=== PATIENT | male | born 1950 | race Caucasian/White ===

== ENCOUNTER 2017-07-29 05:44 | Inpatient (IN) | payer OTHER ==
[2017-07-20 11:17] LABS: % IMMATURE GRANULYOCYTES 0.2 % (0.0-1.1); ABSOLUTE IMMATURE GRANULOCYTES 0.01 10^3/uL (0.00-0.10); ADD DIFF? NO; ADD MORPH? NO; ADD SCAN? NO; ATYPICAL LYMPHOCYTE FLAG 10 (0-99); FRAGMENT RBC FLAG 0 (0-99); HEMATOCRIT 53.5 % (40.0-51.0); HEMOGLOBIN 18.6 g/dL (13.7-17.5); LEFT SHIFT FLG 0 (0-99); LIPEMIA HEMOLYSIS FLAG 90 (0-99); MEAN CELL HEMOGLOBIN 31.4 pg (27.9-34.1); MEAN CELL HEMOGLOBIN CONCENTR. 34.8 g/dL (32.4-36.7); MEAN CELL VOLUME 90.2 fL (81.5-99.8); MEAN PLATELET VOLUME 10.3 fL (8.7-11.7); PLATELET CLUMPS FLAG 10 (0-99); PLATELET COUNT 128 10^3/uL (150-400); RED BLOOD CELL COUNT 5.93 10^6/uL (4.40-6.38)
[2017-07-29] MEDS ORDERED: fentaNYL 100 MCG/2 ML INJ IT ONE (05:51)
[2017-07-29] MEDS ORDERED: ceFAZolin 2 GM/DEXTROSE 100 ML IV ONE (05:51)
[2017-07-29] MEDS ORDERED: LIDOCAINE 1% 2 ML INJ ID PRN (05:53)
[2017-07-29] MEDS ORDERED: LR 1,000 ML IV ONE (05:53)
[2017-07-29] MEDS ORDERED: TRANEXAMIC ACID 1,000 MG in NS 100 ML IV ONE (06:00)
--- NOTE | 2017-07-29 06:15 | PDHPUP ---
History & Physical Update H&P update statement: This history and physical update is based on an assessment of the patient which was completed after admission or registration (within 24 hours), but prior to the surgery/procedure. H&P update: H&P reviewed & patient examined, no change in patient's condition since H&P completed
[2017-07-29] MEDS ORDERED: CHLORHEXIDINE GLUC HIBICLENS 118 ML BTL TP ONE (06:33)
[2017-07-29] MEDS ORDERED: BUPIVACAINE 0.25% 30 ML SDV ONE ×2 (06:34→18:01)
[2017-07-29] MEDS ORDERED: THROMBIN (BOVINE) 5,000 UNIT VIAL TP ONE ×4 (06:34→10:40)
[2017-07-29] MEDS ORDERED: CITRATE DEXTROSE SOLN 500 ML BAG ONE ×2 (06:34→11:50)
[2017-07-29] MEDS ORDERED: BACITRACIN 50,000 UNITS/10 ML SYR IRR ONE ×6 (06:35→16:49)
--- NOTE | 2017-07-29 07:09 | PDANEPAE ---
ANE History of Present Illness TLIF ANE Past Medical History - Cardiovascular History Hx Hypertension: No Hx Arrhythmias: No Hx Chest Pain: No Hx Coronary Artery / Peripheral Vascular Disease: No Hx CHF / Valvular Disease: No Hx Palpitations: No - Pulmonary History Hx COPD: No Hx Asthma/Reactive Airway Disease: No Hx Recent Upper Respiratory Infection: No Hx Oxygen in Use at Home: No Hx Sleep Apnea: No Sleep Apnea Screening Result - Last Documented: Negative - Neurologic History Hx Cerebrovascular Accident: No Hx Seizures: No Hx Dementia: No - Endocrine History Hx Diabetes: No - Renal History Hx Renal Disorders: No - Liver History Hx Hepatic Disorders: No - Neurological & Psychiatric Hx Hx Neurological and Psychiatric Disorders: Yes Neurological / Psychiatric History Comment: low back pain radiates down L leg to toes.Numbness since 1999 -Left half of L leg. - Cancer History Hx Cancer: No - Congenital Disorder History Hx Congenital Disorders: No - GI History GERD: no Hx Gastrointestinal Disorders: No Gastrointestinal History Comment: HX STOMACH ULCER 2010 - Other Health History Other Health History: INJURY TO BACK 1999 - Chronic Pain History Chronic Pain: Yes (LOWER BACK AND LT FOOT NEUROPATHY) - Surgical History Prior Surgeries: PLACEMENT SPINAL CORD STIM 02/2016 (Stage 1 and 2). T9-T12 TLIF 11/05/15. T11/12 DECOMPRESSION FUSION 2012. L ANKLE FX 2008. SPINOUS PROCESS X STOPS L3/4 02/17 2007. L 5/S1 LAMINECTOMY 2001. ANT/POST FUSION L1-3 1999 ANE Review of Systems Review of Systems: - Exercise capacity METS (RN): 4 METS ANE Patient History - Allergies Allergies/Adverse Reactions: peanut Allergy (Severe, Verified 07/15/17 15:13) Anaphylaxis tree nut [Nuts] Allergy (Severe, Verified 07/15/17 15:13) Anaphylaxis No Allergies [NKDA] Allergy (Verified 07/15/17 15:13) - Home Medications Home Medications: Diazepam [Valium 10 MG (*)] 5 - 10 mg PO HS PRN 11/05/15 [Last Taken 07/28/17 22 :30] Pregabalin [Lyrica 75mg (*)] 75 mg PO TID 11/05/15 [Last Taken 07/29/17 05:30] Gabapentin [Neurontin 400 MG (*)] 800 mg PO TID 07/13/17 [Last Taken 07/29/17 05 :00] Hydrocodone/Acetaminophen [[place] 5/325 (*)] 1 tab PO DAILY PRN 07/13/17 [Last Taken 07/15/17] traZODone [traZODONE 50MG (*)] 50 mg PO HS PRN 07/13/17 [Last Taken 07/28/17 22: 30] - NPO status NPO Since - Liquids (Date): 07/28/17 NPO Since - Liquids (Time): 22:00 NPO Since - Solids (Date): 07/28/17 NPO Since - Solids (Time): 19:00 - Anes Hx Anes Hx: no prior problems - Smoking Hx Smoking Status: Never smoked - Alcohol Use Alcohol Use: Occasionally - Family Anes Hx Family Anes Hx: none Family Hx Anesthesia Complications: NONE ANE Labs/Vital Signs - Labs Result Diagrams: 07/20/17 11:04 - Vital Signs Blood Pressure: 131/83 Heart Rate: 68 Respiratory Rate: 20 O2 Sat (%): 91 Height: 175.26 cm Weight: 77.111 kg ANE Physical Exam - Airway Neck exam: FROM Mouth exam: normal dental/mouth exam - Pulmonary Pulmonary: clear to auscultation - Cardiovascular Cardiovascular: regular rate and rhythym - ASA Status ASA Status: III ANE Anesthesia Plan Anesthesia Plan: general endotracheal anesthesia Lines/Monitors: arterial line
[2017-07-29] MEDS ORDERED: MIDAZOLAM 2 MG/2 ML VIAL IVP ONE (07:11)
[2017-07-29] MEDS ORDERED: MIDAZOLAM 2 MG/2 ML VIAL ONE (07:13)
[2017-07-29] MEDS ORDERED: KETAMINE 100 MG/10 ML SYR ONE (07:17)
[2017-07-29] MEDS ORDERED: fentaNYL 100 MCG/2 ML INJ ONE ×8 (07:17→17:24)
[2017-07-29] MEDS ORDERED: PROPOFOL/EMULSION 500 MG/50 ML BOTTLE IV ONE ×4 (07:18→16:22)
[2017-07-29] MEDS ORDERED: ROCURONIUM 50 MG/5 ML VIAL ONE (07:20)
[2017-07-29] MEDS ORDERED: PHENYLEPHRINE 10 MG/ML SDV ONE (08:27)
[2017-07-29] MEDS ORDERED: epHEDrine SULFATE 10 MG/ML SYR ONE (08:31)
[2017-07-29] MEDS ORDERED: GLYCOPYRROLATE 0.2 MG/1 ML VIAL ONE (08:58)
[2017-07-29] MEDS: morphINE PF 5 MG/10 ML INJ IT ONE ×2 (11:11→17:34)
[2017-07-29] MEDS ORDERED: ceFAZolin 1 GM VIAL ONE ×2 (13:36→17:01)
[2017-07-29] MEDS ORDERED: HYDROGEN PEROXIDE 236 ML BOTTLE TP ONE (14:14)
[2017-07-29 15:24] LABS: BASE EXCESS -5.4 mEq/L (-2.5-2.5); BICARBONATE 19 mEq/L (22-26); IONIZED CALCIUM 1.08 MMOL/L (1.12-1.30); MEASURED OXYGEN SATURATION 99 % (92-95); PCO2 35 mmHg (34-38); PO2 129 mmHg (65-75); SODIUM ABG 135 mEq/L (137-146); TCO2 20 mEq/L (23-27)
[2017-07-29] MEDS ORDERED: ONDANSETRON 4 MG/2 ML VIAL ONE (17:52)
[2017-07-29] MEDS ORDERED: traZODone 50 MG TAB PO PRN (18:31)
[2017-07-29] MEDS ORDERED: DIAZEPAM 10 MG TAB PO PRN (18:31)
[2017-07-29] MEDS ORDERED: NALOXONE HCL 0.4 MG/ML INJ IVP PRN ×2 (18:32→18:36)
[2017-07-29] MEDS ORDERED: POLYETHYLENE GLYCOL 3350 17 GM PKT PO PRN (18:32)
[2017-07-29] MEDS ORDERED: diphenhydrAMINE 25 MG CAP PO PRN (18:32)
[2017-07-29] MEDS ORDERED: LACTULOSE 20 GM/30 ML UDCUP PO PRN ×2 (18:32→18:36)
[2017-07-29] MEDS ORDERED: BISACODYL 10 MG SUPP PR PRN ×2 (18:32→18:36)
[2017-07-29] MEDS ORDERED: MAGNESIUM HYDROXIDE 30 ML UDCUP PO PRN ×2 (18:32→18:36)
[2017-07-29] MEDS ORDERED: ONDANSETRON 4 MG/2 ML VIAL IVP PRN (18:32)
[2017-07-29] MEDS ORDERED: HYDROmorphONE/DILAUDID 6 MG/30 ML PCA IV PRN (18:36)
--- NOTE | 2017-07-29 18:49 | SOAPPROG ---
SOAP Progress Note Assessment/Plan: Assessment: 66 yo M sp T6-S1 fusion Plan: stable HOB flat until 08/01/17 with bedrest lovenox starts in am do NOT put MOHIT to suction please call with neuro changes 07/29/17 18:48 Subjective: + back pain, no leg pain Objective: Vital Signs Temp Pulse Resp BP Pulse Ox 36.4 C 68 20 131/83 H 91 L 07/29/17 06:25 07/29/17 07:11 07/29/17 07:11 07/29/17 07:11 07/29/17 07:11 Laboratory Results 07/20/17 11:04 somnolent PERRL, no facial droop, vision ok CRISELDA x 4 + light touch ICD10 Worksheet Patient Problems: Problems Problem Status Onset Fusion of spine of thoracic region Acute
--- NOTE | 2017-07-29 18:52 | GOP ---
[f rep st] OPERATIVE REPORT DATE OF OPERATION: 07/29/2017 SURGEON: Ricardo Fernando MD NEUROSURGEON: Ricardo Fernando MD STRAP STITCHER: OSVALDO Aragon ANESTHESIA: General endotracheal. PREOPERATIVE DIAGNOSIS: Severe L5-S1 spinal stenosis, and left greater than right lateral recess and foraminal impingement. L4-5 spinal stenosis. Severe iatrogenic deformity secondary to prior anterio r-posterior fusion into a kyphotic alignment. Intractable back pain. Failed conservative care. POSTOPERATIVE DIAGNOSIS: Severe L5-S1 spinal stenosis, and left greater than right lateral recess an d foraminal impingement. L4-5 spinal stenosis. Severe iatrogenic deformity secondary to prior anteri or-posterior fusion into a kyphotic alignment. Intractable back pain. Failed conservative care. PROCEDURE PERFORMED: Removal of extensive posterior segmental (pedicle screw and X-Stop devices) fix ation and exploration of spinal fusion from T9 through L3. Re-instrumentation from T6 through the sa milvia. Multilevel decompression, and redo decompression/re-exploration with L4 pedicle subtraction os teotomy, and L3-4, L4-5 and L5-S1 posterior lateral fusion with local autograft, bone morphogenic pro tein and structural PEEK interbody spacers. T6 through sacral posterolateral fusion. Injection of i ntrathecal narcotics. Use of computer volumetric stereotactic navigation with intraoperative neuroph ysiologic testing. Identification and repair of cerebrospinal fluid leak, requiring extension of dawkins inectomy defect. FINDINGS: ESTIMATED BLOOD LOSS: 1800 cc. INDICATIONS: The patient is a 66-year-old man with an extensive past medical and surgical history, a nd he was fused into a kyphotic position many years ago via an anterior/posterior instrumentation and fusion. He also has multilevel severe spinal stenosis and lateral recess impingement. As a result, he has intractable low back pain and left greater than right lower extremity radicular and neurogeni c claudication symptoms. He has failed extensive conservative care, and presents now for surgical in tervention. DESCRIPTION OF PROCEDURE: After informed consent was obtained, the patient was taken to the operatin g room and placed in a prone position on the Wilfrid table. The thoracolumbosacral areas were preppe d and draped in a sterile fashion. After fluoroscopic localization of correct levels, the subcutaneo us and intramuscular tissues were infiltrated with local anesthesia. A midline linear incision was t hen created from approximately T9 through S1. This was carried down to the fascial layer, which was incised using monopolar electrocautery and carried in the subperiosteal plane along the spinous proce sses and lamina bilaterally. The prior hardware was carefully identified. The patient had an extens my amount of scar tissue. All the prior hardware was carefully removed from T9 down to L3. The fus ions were explored and noted to be solid. There was also noted to be a laminectomy defect immediatel y above the T9 level from the spinal cord stimulator that was meticulously dissected out during the e xposure. I felt that the patient had a very high risk of transitional kyphosis with a laminectomy de fect above the fusion we were performed, and I therefore exposed up to T6 and following this, brought in the microscope. Far lateral transpedicular decompressions were performed at the L4-5 and L5-S1 levels with redo poste rior hemilaminectomy and foraminotomies at the L3-4 level bilaterally. Following adequate decompress ion, the O-arm neuronavigational system was brought in and using computer volumetric stereotactic ana igation, pedicle screws were placed from T6 through S1 bilaterally. I had initially intended to plac e iliac screws but due to the patient's extensive amount of scar tissue, I would have had to resect q uite a bit of muscle, and I got excellent fixation at the L5 and S1 levels, and felt that if I had pe rformed the osteotomy at L4 and placed additional fixation at L5-S1, the patient would be better off. Therefore, I left iliac screws out because I thought it was in his best interest. Following this, short rods were placed, first at L5-S1, then at L4-5, then at L3-4 with a slight amou nt of distraction across the interspaces, and complete diskectomies were performed at each level with preparation of the endplates and placement of structural PEEK interbody spacers, packed with local a utograft and bone morphogenic protein for L3-4, L4-5 and L5-S1 posterior/transforaminal lumbar interb raysa fusions. Following this, a jaquelin was placed from the L3 to L5 screws with some distraction, and a pedicle subtraction osteotomy was then performed using the [employer] drill system with a 6 mm coarse di amond bur, along with the rongeurs. The vertebral body was drilled out in an eggshell wedge-type fas hion with a fulcrum at the L3-4 interspace, where the PEEK graft had been placed. Once the complete wedge-shape osteotomy was performed, the patient was realigned with a fulcrum at the PEEK spacer at L 3-4. We obtained excellent realignment into a lordotic position and following this, contoured rods w ere placed, and secured them from T6 through S1. The locking caps were engaged and final tightened. The remaining lamina, facet joints and transverse processes were then extensively decorticated from T6 down to S1, and the residual local autograft from the osteotomy and multilevel facetectomies was p laced out laterally along with bone morphogenic protein for a posterolateral fusion from T6 through S 1. Note that during the final portions of the decompression at the L5-S1 level, there was a spicule of b one extending into the thecal sac. There was no way to remove this without creating a CSF leak, but I thought that it was in the patient's best interest to put a single 4-0 Nurolon suture in this and r einforce it with DuraGen and Gelfoam. This did require extension of the laminectomy defect. There w as no further CSF leakage throughout the case. A drain was then placed. After placing all the bone graft and following re-verification of good position of the screws, rods a nd interbody spacers using biplanar fluoroscopy, an interspinous process clamp was placed at the L5-S 1 level. The wound was closed in a layered fashion using interrupted Vicryl sutures followed by Derm abond on the skin. Note also that 200 mcg of Duramorph along with 50 mcg of fentanyl was injected in trathecally before closure. The subcutaneous and intramuscular tissues were re-infiltrated with loca l anesthesia, as well. COMPLICATIONS: None. DISPOSITION: The patient is currently in the process of being repositioned for extubation. /[id number]/MODL
[2017-07-29] MEDS ORDERED: fentaNYL 100 MCG/2 ML INJ IVP PRN (19:04)
[2017-07-29 19:14] LABS: HEMATOCRIT 49.3 % (40.0-51.0); HEMOGLOBIN 17.1 g/dL (13.7-17.5); MEAN CELL HEMOGLOBIN 31.4 pg (27.9-34.1); MEAN CELL HEMOGLOBIN CONCENTR. 34.7 g/dL (32.4-36.7); MEAN CELL VOLUME 90.5 fL (81.5-99.8); RED BLOOD CELL COUNT 5.45 10^6/uL (4.40-6.38); RED CELL DISTRIBUTION WIDTH 11.9 % (11.5-15.2)
[2017-07-29 19:34] LABS: ANION GAP 10 mEq/L (8-16); CALCIUM 7.7 mg/dL (8.5-10.4); CARBON DIOXIDE 19 mEq/l (22-31); CHLORIDE 106 mEq/L (97-110); CREATININE 1.1 mg/dL (0.7-1.3); GLOMERULAR FILTRATION RATE > 60; GLUCOSE 142 mg/dL (70-100); POTASSIUM 5.2 mEq/L (3.5-5.2); SODIUM 135 mEq/L (134-144)
--- NOTE | 2017-07-29 20:07 | POSTANESTH ---
Post Anesthetic Evaluation Cardiovascular Status: Normal, Stable Respiratory Status: Normal, Stable Level of Consciousness/Mental Status: Can Participate in Eval Pain Control: Adequate, Prn Tx Ordered Nausea/Vomiting Control: Adequate, Prn Tx Ordered Complications Possibly Related to Anesthesia: None Noted
[2017-07-29] MEDS ORDERED: SENNOSIDES/DOCUSATE SODIUM TAB PO SCH (21:00)
[2017-07-29] MEDS: NS 1,000 ML IV SCH (21:13)
[2017-07-29] MEDS: GABAPENTIN 400 MG CAP PO SCH (21:34)
[2017-07-29] MEDS: morphINE SR 15 MG TAB PO SCH (21:34)
[2017-07-29] MEDS: PREGABALIN 75 MG CAP PO SCH (21:34)
[2017-07-29] MEDS: ACETAMINOPHEN 500 MG TAB PO SCH (21:35)
[2017-07-29] MEDS: POLYETHYLENE GLYCOL 3350 17 GM PKT PO SCH (21:35)
[2017-07-29] MEDS: FAMOTIDINE 20 MG TAB PO SCH (21:35)
[2017-07-29] MEDS: SENNOSIDES/DOCUSATE SODIUM TAB PO SCH (21:35)
[2017-07-29] MEDS: ceFAZolin 2 GM/DEXTROSE 100 ML IV SCH (21:35)
[2017-07-29] MEDS ORDERED: ACETAMINOPHEN 500 MG TAB PO SCH (22:00)
[2017-07-30] MEDS: ACETAMINOPHEN 500 MG TAB PO SCH ×3 (04:25→22:08)
[2017-07-30] MEDS: ONDANSETRON DISINTEGRATING 4 MG TAB PO PRN (04:25)
[2017-07-30] MEDS: NS 1,000 ML IV SCH ×2 (05:09→13:42)
[2017-07-30] MEDS: ceFAZolin 2 GM/DEXTROSE 100 ML IV SCH (05:09)
[2017-07-30 05:44] LABS: % IMMATURE GRANULYOCYTES 0.4 % (0.0-1.1); ABSOLUTE IMMATURE GRANULOCYTES 0.05 10^3/uL (0.00-0.10); ADD DIFF? NO; ADD MORPH? NO; ADD SCAN? NO; ATYPICAL LYMPHOCYTE FLAG 0 (0-99); FRAGMENT RBC FLAG 0 (0-99); HEMATOCRIT 43.7 % (40.0-51.0); HEMOGLOBIN 14.9 g/dL (13.7-17.5); LEFT SHIFT FLG 20 (0-99); LIPEMIA HEMOLYSIS FLAG 90 (0-99); MEAN CELL HEMOGLOBIN 31.3 pg (27.9-34.1); MEAN CELL HEMOGLOBIN CONCENTR. 34.1 g/dL (32.4-36.7); MEAN CELL VOLUME 91.8 fL (81.5-99.8); MEAN PLATELET VOLUME 10.4 fL (8.7-11.7); PLATELET CLUMPS FLAG 40 (0-99); PLATELET COUNT 111 10^3/uL (150-400); RED BLOOD CELL COUNT 4.76 10^6/uL (4.40-6.38); RED CELL DISTRIBUTION WIDTH 12.1 % (11.5-15.2)
[2017-07-30 06:16] LABS: ANION GAP 4 mEq/L (8-16); CALCIUM 7.3 mg/dL (8.5-10.4); CARBON DIOXIDE 23 mEq/l (22-31); CHLORIDE 105 mEq/L (97-110); CREATININE 1.2 mg/dL (0.7-1.3); GLOMERULAR FILTRATION RATE > 60; GLUCOSE 147 mg/dL (70-100); SODIUM 132 mEq/L (134-144)
--- NOTE | 2017-07-30 06:25 | SOAPPROG ---
SONITA Progress Note Assessment/Plan: Assessment: 66 yo M POD #1 sp T6-S1 fusion. Doing well this AM Plan: Pain control HOB flat until 08/01/17 with bedrest lovenox starts today do NOT put MOHIT to suction please call with neuro changes discussed with Dr. Maurice 07/30/17 07:57 07/30/17 07:57 Subjective: awake, alert, comfortable. He states he hasn't been able to lay flat until now due to severe left leg pain in that position, so he feels encouraged that surgery may have helped this issue. Denies any new weakness or tingling Objective: Vital Signs Temp Pulse Resp BP Pulse Ox 36.9 C 65 13 99/61 L 97 07/30/17 04:00 07/30/17 06:00 07/30/17 06:00 07/30/17 06:00 07/30/17 06:00 Laboratory Results 07/30/17 05:30 07/29/17 07/30/17 07/31/17 05:59 05:59 05:59 Intake Total 4863 Output Total 2980 Balance 1883 Neuro: MORALES, sens +LT follows commands 4/5 strength left DF (prexisting) Dressing: Dry MOHIT: 100ml (NOT to suction) ICD10 Worksheet Patient Problems: Problems Problem Status Onset Fusion of spine of thoracic region Acute
[2017-07-30] MEDS ORDERED: ENOXAPARIN 40 MG/0.4 ML SYR SC SCH (09:00)
[2017-07-30] MEDS: GABAPENTIN 400 MG CAP PO SCH ×3 (09:04→20:29)
[2017-07-30] MEDS: PREGABALIN 75 MG CAP PO SCH ×3 (09:04→20:30)
[2017-07-30] MEDS: SENNOSIDES/DOCUSATE SODIUM TAB PO SCH ×2 (09:05→22:07)
[2017-07-30] MEDS: FAMOTIDINE 20 MG TAB PO SCH ×2 (09:05→20:30)
[2017-07-30] MEDS: ENOXAPARIN 40 MG/0.4 ML SYR SC SCH (09:05)
[2017-07-30] MEDS: morphINE SR 15 MG TAB PO SCH (09:06)
[2017-07-30] MEDS: POLYETHYLENE GLYCOL 3350 17 GM PKT PO SCH ×3 (09:39→22:07)
--- NOTE | 2017-07-30 09:54 | ASMTCASEMG ---
Living Arrangements What is your living Answers: Alone arrangement? Who do you live with? Type Of Residence What kind of residence do Answers: House you live in? Discharge Plan Comments Coordination Status Comments Notes: Patient is a 66yo man, , who was admitted for fusion of spine of thoracic region. He needs to remain flat until 08-01-17. OT/PT have been ordered. Patient has a daughter Cornelia. CM will follow. Date Signed: 07/30/2017 09:53 AM Electronically Signed By:Genia Hamilton LCSW
--- NOTE | 2017-07-30 11:36 | WOCRNPDOC ---
WOCRN Advanced Assessment Note - Skin Integrity Problem, Advanced Assess Bilateral Groin Dressing Type: Open to Air Exudate Amount: None Exudate Characteristic(s): None Ashleigh Wound Tissue: Intact Pressure Injury Present on Admit: No (injuries sustained in OR during 11 hour surgery) Skin Integrity Problem Comment: Scattered wounds on patient's bilateral groin and lower abdomen, some partial-thickness tissue loss evident, consistent in appearance w/ stage 2 pressure injuries. Per surgical report, patient was prone for 11 hours during surgery. Presently he is on his back, and there is no ongoing pressure to these wounds. These should all likely heal w/out any advanced wound care interventions. No need for wound care to follow ongoing. Report given to digital performance analystRAMIRO Zabala.
[2017-07-30] MEDS: HYDROCODONE/APAP 5/325 TAB PO PRN ×2 (17:59→21:43)
[2017-07-30] MEDS: DIAZEPAM 5 MG TAB PO PRN (21:04)
[2017-07-30] MEDS: morphINE SR 30 MG TAB PO SCH (22:06)
[2017-07-31] MEDS: HYDROCODONE/APAP 5/325 TAB PO PRN ×5 (01:38→22:21)
[2017-07-31] MEDS: ACETAMINOPHEN 500 MG TAB PO SCH ×3 (06:37→20:50)
--- NOTE | 2017-07-31 08:10 | NEUSURGPN ---
Assessment/Plan: 66 yo M POD #2 sp T6-S1 fusion. Doing well this AM Plan: Optimize pain management, including increased muscle relaxers Bowel protocol, discussed with patient want to avoid constipation and bearing down for at least 2wks post op Pulmonary toilet/IS HOB flat until 08/01/17 with bedrest. OKAY TO BEND KNEES DVT prophx: TEDs, SCDs, lovenox Continue MOHIT, do NOT put MOHIT to suction please call with neuro changes discussed with Dr. Maurice Subjective: Low back stiffiness, low back pain Objective: NAD A&OX3 MAEx4 5/5 and equal in BUE and BLE. Dressing c/d/i Catheter Insertion Date: 07/29/17 - Physician Discussed Patient with : Abdullahi Neurosurgery Physical Exam - Vitals, I&O, Labs I and O 07/30/17 07/31/17 08/01/17 05:59 05:59 05:59 Intake Total 4863 1425 Output Total 2980 1900 Balance 1883 -475 Weight 77.111 kg Intake: Oral (ml) 1000 175 IV Intake (ml) 3863 IV Infused (ml) 1250 Ns 1,000 ml @ 125 mls/hr 1250 IV CONT MIKHAIL Rx#: [id number] Output: Urine (ml) 1080 1900 Catheter 1080 Urinal 1900 Estimated Blood Loss (ml) 1800 MOHIT Drain Output (ml) 100 Back Wilfrid Weston 100 Other: Intake Quantity Yes Sufficient Number of Voids Urinal 1 Vital Signs Temp Pulse Resp BP Pulse Ox 36.8 C 71 13 105/61 97 07/31/17 07:47 07/31/17 07:47 07/31/17 07:47 07/31/17 07:47 07/31/17 07:47 Laboratory Results 07/30/17 05:30 07/30/17 05:30 ICD10 Worksheet Patient Problems: Problems Problem Status Onset Fusion of spine of thoracic region Acute
[2017-07-31] MEDS: ONDANSETRON DISINTEGRATING 4 MG TAB PO PRN (09:22)
[2017-07-31] MEDS: ENOXAPARIN 40 MG/0.4 ML SYR SC SCH (09:33)
[2017-07-31] MEDS: PREGABALIN 75 MG CAP PO SCH ×3 (10:30→20:50)
[2017-07-31] MEDS: FAMOTIDINE 20 MG TAB PO SCH ×2 (10:33→20:50)
[2017-07-31] MEDS: GABAPENTIN 400 MG CAP PO SCH ×3 (10:33→20:49)
[2017-07-31] MEDS: SENNOSIDES/DOCUSATE SODIUM TAB PO SCH ×2 (10:34→20:51)
[2017-07-31] MEDS: POLYETHYLENE GLYCOL 3350 17 GM PKT PO SCH ×3 (10:35→23:08)
[2017-07-31] MEDS: oxyCODONE CR 15 MG TAB PO SCH ×2 (11:12→20:51)
[2017-07-31] MEDS: guaiFENesin 600 MG TAB.ER PO SCH ×2 (11:13→20:49)
[2017-07-31] MEDS: morphINE SR 30 MG TAB PO SCH (14:01)
[2017-07-31] MEDS: DIAZEPAM 5 MG TAB PO PRN (22:21)
[2017-08-01] MEDS: NS 1,000 ML IV SCH (04:46)
[2017-08-01] MEDS: HYDROCODONE/APAP 5/325 TAB PO PRN ×4 (04:53→19:48)
[2017-08-01] MEDS: ACETAMINOPHEN 500 MG TAB PO SCH ×3 (04:54→21:39)
[2017-08-01] MEDS: METHOCARBAMOL 750 MG TAB PO PRN ×2 (06:26→14:42)
[2017-08-01] MEDS: GABAPENTIN 400 MG CAP PO SCH ×3 (08:09→21:36)
[2017-08-01] MEDS: oxyCODONE CR 15 MG TAB PO SCH ×2 (08:09→19:47)
[2017-08-01] MEDS: guaiFENesin 600 MG TAB.ER PO SCH ×2 (08:10→19:47)
[2017-08-01] MEDS: POLYETHYLENE GLYCOL 3350 17 GM PKT PO SCH ×3 (08:10→21:26)
[2017-08-01] MEDS: PREGABALIN 75 MG CAP PO SCH ×3 (08:10→21:36)
[2017-08-01] MEDS: ENOXAPARIN 40 MG/0.4 ML SYR SC SCH (08:10)
[2017-08-01] MEDS: FAMOTIDINE 20 MG TAB PO SCH ×2 (08:10→19:50)
[2017-08-01] MEDS: SENNOSIDES/DOCUSATE SODIUM TAB PO SCH ×2 (08:19→19:48)
--- NOTE | 2017-08-01 09:47 | NEUSURGPN ---
Assessment/Plan: 66 yo M POD #3 sp T6-S1 fusion. Having low back pain and spasms Plan: Optimize pain management, including increased muscle relaxers Bowel protocol, discussed with patient want to avoid constipation and bearing down for at least 2wks post op Pulmonary toilet/IS Rasing HOB 10 degrees and hour, started at 0930. Please notify NS with any change in neuro/motor exam DVT prophx: TEDs, SCDs, lovenox Continue MOHIT, do NOT put MOHIT to suction please call with neuro changes discussed with Dr. Maurice Subjective: low back stiffness and increased pain Objective: NAD A&Ox3 MAEx4 5/5 and equal in BUE and BLE. Incision c/d/i, flat Catheter Insertion Date: 07/29/17 - Physician Discussed Patient with DrRey: Abdullahi Neurosurgery Physical Exam - Vitals, I&O, Labs I and O 07/31/17 08/01/17 08/02/17 05:59 05:59 05:59 Intake Total 1425 2330 Output Total 1900 [id number] [address] [id number] Intake: Oral (ml) 175 2330 IV Infused (ml) 1250 Ns 1,000 ml @ 125 mls/hr 1250 IV CONT MIKHAIL Rx#: [id number] Output: Urine (ml) 1900 853828 750 Urinal 1900 471697 750 MOHIT Drain Output (ml) 30 110 Back Wilfrid Weston 30 110 Other: Intake Quantity Yes Yes Sufficient Number of Voids Urinal 1 1 1 Vital Signs Temp Pulse Resp BP Pulse Ox 36.8 C 71 18 109/67 96 08/01/17 07:56 08/01/17 07:56 08/01/17 07:56 08/01/17 07:56 08/01/17 07:56 Laboratory Results 07/30/17 05:30 07/30/17 05:30 ICD10 Worksheet Patient Problems: Problems Problem Status Onset Fusion of spine of thoracic region Acute
[2017-08-01] MEDS ORDERED: DIAZEPAM 5 MG TAB PO PRN (11:37)
[2017-08-01] MEDS: DIAZEPAM 5 MG TAB PO PRN (19:46)
[2017-08-02] MEDS: HYDROCODONE/APAP 5/325 TAB PO PRN ×5 (02:04→20:27)
[2017-08-02] MEDS: DIAZEPAM 5 MG TAB PO PRN ×2 (02:05→21:14)
[2017-08-02] MEDS: ACETAMINOPHEN 500 MG TAB PO SCH ×3 (07:18→20:28)
[2017-08-02] MEDS: POLYETHYLENE GLYCOL 3350 17 GM PKT PO SCH ×3 (08:04→21:14)
[2017-08-02] MEDS: NS 1,000 ML IV SCH (08:04)
[2017-08-02] MEDS: GABAPENTIN 400 MG CAP PO SCH ×4 (08:04→21:13)
[2017-08-02] MEDS: PREGABALIN 75 MG CAP PO SCH ×4 (08:05→21:14)
[2017-08-02] MEDS: FAMOTIDINE 20 MG TAB PO SCH ×2 (08:05→20:25)
[2017-08-02] MEDS: METHOCARBAMOL 750 MG TAB PO PRN ×2 (08:06→16:21)
[2017-08-02] MEDS: oxyCODONE CR 15 MG TAB PO SCH (08:06)
[2017-08-02] MEDS: ENOXAPARIN 40 MG/0.4 ML SYR SC SCH (08:07)
--- NOTE | 2017-08-02 10:07 | NEUSURGPN ---
Date of Surgery: 07/29/17 Post Op Day: 4 Assessment/Plan: 66 yo M sp T6-S1 fusion. Having low back pain and spasms Plan: Optimize pain management, including increased muscle relaxers Encourage IS Q1 hour while awake Patient tolerating elevated HOB and out of chair last night, no headache Patient will be getting TLSO brace early afternoon today, rep notified by myself Encourage PT/OT once brace arrives DVT prophx: TEDs, SCDs, lovenox Continue MOHIT, do NOT put MOHIT to suction please call with neuro changes discussed with Dr. Maurice Subjective: Patient tolerating elevated HOB Objective: AxO x3 PERRLA EOMI 5/ BUE, BLE Dressing CDI MOHIT in place-not to suction Neuro Check Frequency: per routine Urinary Catheter in Place: No Catheter Insertion Date: 07/29/17 - Physician Discussed Patient with : Abdullahi Neurosurgery Physical Exam - Vitals, I&O, Labs I and O 08/01/17 08/02/17 08/03/17 05:59 05:59 05:59 Intake Total 2330 1400 150 Output Total 144680 1154 125 Balance -206064 20 25 Intake: Oral (ml) 2330 1400 150 Output: Urine (ml) 757147 4716 125 Urinal 523587 4918 125 MOHIT Drain Output (ml) 30 130 Back Wilfrid Weston 30 130 Other: Intake Quantity Yes Sufficient Number of Voids Urinal 1 1 Vital Signs Temp Pulse Resp BP Pulse Ox 36.9 C 77 14 105/66 96 08/02/17 08:00 08/02/17 08:00 08/02/17 08:00 08/02/17 08:00 08/02/17 08:00 Laboratory Results 07/30/17 05:30 07/30/17 05:30 ICD10 Worksheet Patient Problems: Problems Problem Status Onset Fusion of spine of thoracic region Acute
[2017-08-02] MEDS: guaiFENesin 600 MG TAB.ER PO SCH ×2 (10:26→20:29)
[2017-08-02] MEDS: SENNOSIDES/DOCUSATE SODIUM TAB PO SCH ×2 (10:26→20:25)
--- NOTE | 2017-08-02 13:24 | WOCRNPDOC ---
WOCRN Advanced Assessment Note - Skin Integrity Problem, Advanced Assess Left Upper Thigh Pressure Injury Dressing Type: Open to Air Wound Bed Constitution: Smooth Tissue, Scab Site Measurement - Head-to-Toe Length X Width X Depth (cm): 0.5x1x0.1 (medial), measuring 2.5 cm from 10-4 oclock, center wound 10-4 oclock 1.8 cm and lateral is 2.2 cm. Pressure Injury Stage: Stage 2 Pressure Injury Present on Admit: No Skin Integrity Problem Comment: x3 stage 2 pressure injuries on left anterior thigh and another that patient reports is from the same surgical procedure on his left lower abdomen (0.5x1.5x0.1). All wounds are scabbed and painful. Wounds can be covered with Allevyn life after application of wound gel. Patient also has some smaller in dimension wounds also stage 2 on right anterior thigh. Those also can be treated in the same manner. Joselyn DURHAM in room for care. Wound care will sign off.
--- NOTE | 2017-08-02 16:47 | ASMTCMCOM ---
CM Note CM Note Notes: PT rec home, OT rec home vs HH. S/w pt & dghtr Cornelia who are interested in SNF, adamant [place]. Cornelia is in town from OR for two weeks and pts other dghtr is due to give shortly so Cornelia does not want pt returning home. Pt expresses interest in [facility] and [facility], referral sent. CM to follow. Date Signed: 08/02/2017 04:46 PM Electronically Signed By:NANDA Nieves
[2017-08-03] MEDS: HYDROCODONE/APAP 5/325 TAB PO PRN ×3 (03:31→17:09)
[2017-08-03] MEDS: DIAZEPAM 5 MG TAB PO PRN (03:32)
[2017-08-03] MEDS: ACETAMINOPHEN 500 MG TAB PO SCH ×3 (06:20→21:24)
[2017-08-03] MEDS: GABAPENTIN 400 MG CAP PO SCH ×4 (07:27→21:25)
--- NOTE | 2017-08-03 08:07 | NEUSURGPN ---
Date of Surgery: 07/29/17 Post Op Day: 5 Assessment/Plan: 66 yo M sp T6-S1 fusion. Having low back pain and spasms Plan: Optimize pain management, including increased muscle relaxers Encourage IS Q1 hour while awake Patient was fitted with TLSO yesterday, wear when out of bed Encourage PT/OT Rehab consult to eval dispo options, patient lives [place] DVT prophx: TEDs, SCDs, lovenox Continue MOHIT, do NOT put MOHIT to suction please call with neuro changes discussed with Dr. Maurice Subjective: Expected back pain, leg pain improved Objective: AxO x3 PERRLA EOMI 03/19 BUE, BLE Dressing CDI MOHIT in place-not to suction Neuro Check Frequency: per routine Urinary Catheter in Place: No Catheter Insertion Date: 07/29/17 - Physician Discussed Patient with : Abdullahi Neurosurgery Physical Exam - Vitals, I&O, Labs I and O 08/02/17 08/03/17 08/04/17 05:59 05:59 05:59 Intake Total 1400 550 400 Output Total 1380 2020 100 Balance 20 -1470 300 Intake: Oral (ml) 1400 550 400 Output: Urine (ml) 1250 2000 100 Urinal 1250 2000 100 MOHIT Drain Output (ml) 130 20 Back Wilfrid Weston 130 20 Other: Number of Voids Urinal 1 2 Bladder Scan Volume (ml) Urinal 366 Vital Signs Temp Pulse Resp BP Pulse Ox 36.8 C 78 11 L 107/64 96 08/03/17 08:00 08/03/17 08:00 08/03/17 08:00 08/03/17 08:00 08/03/17 08:00 Laboratory Results 07/30/17 05:30 07/30/17 05:30 ICD10 Worksheet Patient Problems: Problems Problem Status Onset Fusion of spine of thoracic region Acute
[2017-08-03] MEDS: POLYETHYLENE GLYCOL 3350 17 GM PKT PO SCH ×3 (08:57→21:26)
[2017-08-03] MEDS: PREGABALIN 75 MG CAP PO SCH ×4 (08:59→21:25)
[2017-08-03] MEDS: FAMOTIDINE 20 MG TAB PO SCH ×2 (09:00→21:24)
[2017-08-03] MEDS: ENOXAPARIN 40 MG/0.4 ML SYR SC SCH (09:00)
[2017-08-03] MEDS: SENNOSIDES/DOCUSATE SODIUM TAB PO SCH ×2 (09:01→21:23)
[2017-08-03] MEDS: guaiFENesin 600 MG TAB.ER PO SCH ×2 (10:23→21:26)
[2017-08-03] MEDS: METHOCARBAMOL 750 MG TAB PO PRN (17:09)
[2017-08-03 23:27] VITALS: RESP 16
[2017-08-04] MEDS: ACETAMINOPHEN 500 MG TAB PO SCH ×3 (05:58→21:31)
[2017-08-04] MEDS: POLYETHYLENE GLYCOL 3350 17 GM PKT PO SCH ×3 (08:25→21:32)
[2017-08-04] MEDS: ENOXAPARIN 40 MG/0.4 ML SYR SC SCH (08:25)
[2017-08-04] MEDS: HYDROCODONE/APAP 5/325 TAB PO PRN ×3 (08:26→21:22)
[2017-08-04] MEDS: SENNOSIDES/DOCUSATE SODIUM TAB PO SCH ×2 (08:27→21:20)
[2017-08-04] MEDS: FAMOTIDINE 20 MG TAB PO SCH ×2 (08:27→21:21)
[2017-08-04] MEDS: guaiFENesin 600 MG TAB.ER PO SCH ×3 (08:27→21:31)
[2017-08-04] MEDS: PREGABALIN 75 MG CAP PO SCH ×3 (08:27→21:20)
[2017-08-04] MEDS: GABAPENTIN 400 MG CAP PO SCH ×3 (08:27→21:20)
--- NOTE | 2017-08-04 09:26 | SOAPPROG ---
SOAP Progress Note Assessment/Plan: Assessment: 66 yo M POD sp T6-S1 fusion. Doing well this AM. Does not want rehab, wants to go home instead. Plan: DC planning change dressing PT/OT Change brace to different TLSO please call with neuro changes Subjective: Awake, alert, comfortable. Wants to go home, not rehab. denies numbness or tingling. Objective: Vital Signs Temp Pulse Resp BP Pulse Ox 36.8 C 76 16 116/72 95 08/04/17 07:28 08/04/17 07:28 08/04/17 07:28 08/04/17 07:28 08/04/17 07:28 Laboratory Results 07/30/17 05:30 07/30/17 05:30 08/03/17 08/04/17 08/05/17 05:59 05:59 05:59 Intake Total 550 700 Output Total 2019 400 Balance -1470 300 Neuro: Ambulatory MORALES, sens +LT incision: CDI, some glue is peeling off on parts of the incision, no clear drainage noted ICD10 Worksheet Patient Problems: Problems Problem Status Onset Fusion of spine of thoracic region Acute
--- NOTE | 2017-08-04 16:40 | ASMTCMCOM ---
CM Note CM Note Notes: Zara Sahu assessed pt for [facility] IPR, pt does not qualify. Although pt accepted at both [facility] and [facility], today pt and dghtr decide to go home w [facility]. [facility] accepts pt for service. Date Signed: 08/04/2017 04:40 PM Electronically Signed By:NANDA Nieves
[2017-08-04] MEDS: METHOCARBAMOL 750 MG TAB PO PRN (16:58)
--- NOTE | 2017-08-04 19:48 | PDIAF ---
- Diagnosis Diagnosis: Thoracolumbar fusion Code Status: Full Code - Medication Management Discharge Medications: Medications to Continue on Transfer Diazepam [Valium 10 MG (*)] 5 - 10 mg PO HS PRN 11/05/15 [Last Taken 07/28/17 22 :30] Pregabalin [Lyrica 75mg (*)] 75 mg PO TID 11/05/15 [Last Taken 07/29/17 05:30] Gabapentin [Neurontin 400 MG (*)] 800 mg PO TID 07/13/17 [Last Taken 07/29/17 05 :00] Hydrocodone/Acetaminophen [[place] 5/325 (*)] 1 tab PO DAILY PRN 07/13/17 [Last Taken 07/15/17] traZODone [traZODONE 50MG (*)] 50 mg PO HS PRN 07/13/17 [Last Taken 07/28/17 22: 30] Discharge Medications: Refer to the Discharge Home Medication list for PRN reason. PICC Care - Routine: N/A - Orders Services needed: Home Care, Registered Nurse, Physical Therapy, Occupational Therapy Home Care Face to Face: I certify that this patient was under my care and that I had the required [id number] encounter meeting the encounter requirements on the discharge day. My findings support the fact that the patient is homebound as defined in Home Care Face to Face Continued: CMS Chapter 7 Medicare Benefits Manual 30.1.1 , The condition of the patient is such that there exists a normal inability to leave home and consequently, leaving home would require a considerable and taxing effort. Diet Recommendation: no restrictions on diet Diet Texture: Regular Texture Diet Hawk: Not applicable Wound Care Instructions: check incision daily. Call for drainage, redness, pain Activity/Weight Bearing Restrictions: no bending, twisting or lifting over 10 lbs x 6 weeks. Wear brace when out of bed Equipment: wear back brace when out of bed - Follow Up Care Current Providers and Referrals: Edith Spears MD [Primary Care Provider] -
[2017-08-05] MEDS: ACETAMINOPHEN 500 MG TAB PO SCH (05:11)
[2017-08-05 07:44] VITALS: BP 115/71; PULSE 81; TEMP 98.3
--- NOTE | 2017-08-05 08:07 | PDIAF ---
- Diagnosis Diagnosis: Thoracolumbar fusion Code Status: Full Code - Medication Management Discharge Medications: Medications to Continue on Transfer Diazepam [Valium 10 MG (*)] 5 - 10 mg PO HS PRN 11/05/15 [Last Taken 07/28/17 22 :30] Pregabalin [Lyrica 75mg (*)] 75 mg PO TID 11/05/15 [Last Taken 07/29/17 05:30] Gabapentin [Neurontin 400 MG (*)] 800 mg PO TID 07/13/17 [Last Taken 07/29/17 05 :00] Hydrocodone/Acetaminophen [[place] 5/325 (*)] 1 tab PO DAILY PRN 07/13/17 [Last Taken 07/15/17] traZODone [traZODONE 50MG (*)] 50 mg PO HS PRN 07/13/17 [Last Taken 07/28/17 22: 30] Acetaminophen [Tylenol ES 500 mg (*)] 1,000 mg PO Q8HRS tab 08/05/17 [Last Taken Unknown] Diazepam [Valium 5 MG (*)] 5 - 10 mg PO Q6 PRN tab 08/05/17 [Last Taken Unknown ] Hydrocodone/APAP 5/325 [Fing[place] 5/325 (*)] 1 - 2 tab PO Q4HRS PRN tab 08/05/17 [ Last Taken Unknown] Methocarbamol [Robaxin 750 mg (*)] 750 mg PO QID PRN tab 08/05/17 [Last Taken Unknown] Sennosides/Docusate Sodium [Senokot-S] 1 - 2 tab PO BID tab 08/05/17 [Last Taken Unknown] oxyCODONE CR [Oxycontin] 20 mg PO BID tab 08/05/17 [Last Taken Unknown] Discharge Medications: Refer to the Discharge Home Medication list for PRN reason. PICC Care - Routine: N/A - Orders Services needed: Home Care, Registered Nurse, Physical Therapy, Occupational Therapy Home Care Face to Face: I certify that this patient was under my care and that I had the required [id number] encounter meeting the encounter requirements on the discharge day. My findings support the fact that the patient is homebound as defined in Home Care Face to Face Continued: CMS Chapter 7 Medicare Benefits Manual 30.1.1 , The condition of the patient is such that there exists a normal inability to leave home and consequently, leaving home would require a considerable and taxing effort. Diet Recommendation: no restrictions on diet Diet Texture: Regular Texture Diet Hawk: Not applicable Wound Care Instructions: check incision daily. Call for drainage, redness, pain Activity/Weight Bearing Restrictions: no bending, twisting or lifting over 10 lbs x 6 weeks. Wear brace when out of bed Equipment: wear back brace when out of bed - Follow Up Care Current Providers and Referrals: Edith Spears MD [Primary Care Provider] - Ricardo Fernando MD [Medical Doctor] - follow up in 1 week
--- NOTE | 2017-08-05 08:11 | NEUSURGPN ---
Date of Surgery: 07/29/17 Post Op Day: 7 Assessment/Plan: 66 yo M sp T6-S1 fusion Plan: Discharge home with home health care Prescriptions given to daughter to fill Contact Horizon for new TLSO style-patient not tolerating current brace change dressing daily please call with neuro changes discussed with Dr. Maurice Subjective: Patient has expected back/incisional pain, leg pain improved Objective: AxO x3 5/5 BUE 5/5 RLE, 3/5 left TA/EHL Sensation intact to light touch BLE Incision CDI, dressing in place Neuro Check Frequency: per routine Urinary Catheter in Place: No Catheter Insertion Date: 07/29/17 - Physician Discussed Patient with DrRey: Abdullahi Neurosurgery Physical Exam - Vitals, I&O, Labs I and O 08/04/17 08/05/17 08/06/17 05:59 05:59 05:59 Intake Total 700 Output Total 400 Balance 300 Intake: Oral (ml) 700 Output: Urine (ml) 300 Toilet 200 Urinal 100 MOHIT Drain Output (ml) 100 Back Wilfrid Weston 100 Other: Intake Quantity Yes Sufficient Number of Voids Toilet 1 1 Number of Stools Toilet 1 1 Urinal 1 Vital Signs Temp Pulse Resp BP Pulse Ox 36.8 C 81 16 115/71 87 L 08/05/17 07:44 08/05/17 07:44 08/05/17 07:44 08/05/17 07:44 08/05/17 07:44 Laboratory Results 07/30/17 05:30 07/30/17 05:30 ICD10 Worksheet Patient Problems: Problems Problem Status Onset Fusion of spine of thoracic region Acute
[2017-08-05] MEDS: POLYETHYLENE GLYCOL 3350 17 GM PKT PO SCH (08:55)
[2017-08-05] MEDS: ENOXAPARIN 40 MG/0.4 ML SYR SC SCH (08:55)
[2017-08-05] MEDS: GABAPENTIN 400 MG CAP PO SCH (08:55)
[2017-08-05] MEDS: SENNOSIDES/DOCUSATE SODIUM TAB PO SCH (08:56)
[2017-08-05] MEDS: FAMOTIDINE 20 MG TAB PO SCH (08:56)
[2017-08-05] MEDS: guaiFENesin 600 MG TAB.ER PO SCH (08:56)
[2017-08-05] MEDS: PREGABALIN 75 MG CAP PO SCH (08:56)
--- NOTE | 2017-08-05 08:57 | PDIAF ---
- Diagnosis Diagnosis: Thoracolumbar fusion Code Status: Full Code - Medication Management Discharge Medications: Medications to Continue on Transfer Diazepam [Valium 10 MG (*)] 5 - 10 mg PO HS PRN 11/05/15 [Last Taken 07/28/17 22 :30] Pregabalin [Lyrica 75mg (*)] 75 mg PO TID 11/05/15 [Last Taken 07/29/17 05:30] Gabapentin [Neurontin 400 MG (*)] 800 mg PO TID 07/13/17 [Last Taken 07/29/17 05 :00] Hydrocodone/Acetaminophen [[place] 5/325 (*)] 1 tab PO DAILY PRN 07/13/17 [Last Taken 07/15/17] traZODone [traZODONE 50MG (*)] 50 mg PO HS PRN 07/13/17 [Last Taken 07/28/17 22: 30] Acetaminophen [Tylenol ES 500 mg (*)] 1,000 mg PO Q8HRS tab 08/05/17 [Last Taken Unknown] Diazepam [Valium 5 MG (*)] 5 - 10 mg PO Q6 PRN tab 08/05/17 [Last Taken Unknown ] Hydrocodone/APAP 5/325 [[place] 5/325 (*)] 1 - 2 tab PO Q4HRS PRN tab 08/05/17 [ Last Taken Unknown] Methocarbamol [Robaxin 750 mg (*)] 750 mg PO QID PRN tab 08/05/17 [Last Taken Unknown] Sennosides/Docusate Sodium [Senokot-S] 1 - 2 tab PO BID tab 08/05/17 [Last Taken Unknown] oxyCODONE CR [Oxycontin] 20 mg PO BID tab 08/05/17 [Last Taken Unknown] Discharge Medications: Refer to the Discharge Home Medication list for PRN reason. PICC Care - Routine: N/A - Orders Services needed: Home Care, Registered Nurse, Physical Therapy, Occupational Therapy Home Care Face to Face: I certify that this patient was under my care and that I had the required [id number] encounter meeting the encounter requirements on the discharge day. My findings support the fact that the patient is homebound as defined in Home Care Face to Face Continued: CMS Chapter 7 Medicare Benefits Manual 30.1.1 , The condition of the patient is such that there exists a normal inability to leave home and consequently, leaving home would require a considerable and taxing effort. Diet Recommendation: no restrictions on diet Diet Texture: Regular Texture Diet Hawk: Not applicable Wound Care Instructions: check incision daily. Call for drainage, redness, pain Activity/Weight Bearing Restrictions: no bending, twisting or lifting over 10 lbs x 6 weeks. Wear brace when out of bed Equipment: wear back brace when out of bed - Follow Up Care Current Providers and Referrals: Edith Spears MD [Primary Care Provider] - Ricardo Fernando MD [Medical Doctor] - follow up in 1 week
[2017-08-05 09:04] VITALS: O2SAT 93
[2017-08-05] MEDS: HYDROCODONE/APAP 5/325 TAB PO PRN (09:15)
--- NOTE | 2017-08-05 15:48 | ASMTCMCOM ---
CM Note CM Note Notes: Pt medically stable for d/c w [facility] and dghtr support. Date Signed: 08/05/2017 03:47 PM Electronically Signed By:NANDA Nieves
--- NOTE | 2017-08-05 15:48 | ASDISCHSUM ---
Discharge Information Plan Status:Home with Home Health Medically Cleared to Leave: Discharge Date:08/05/2017 12:07 PM CM D/C Disposition:Home Health Service [facility] D/C Disposition:HHSNOTBCH Projected Discharge Date:08/05/2017 11:00 AM Transportation at D/C: Discharge Delay Reason: Follow-Up Date:08/05/2017 11:00 AM Discharge Slot: Final Diagnosis: Placement Information Referral Type:*Usp/SNF Referral ID:[id number] Provider Name: Address 1: Phone Number: Address 2: Fax Number: City: Selection Factors: State: Referral Type:*Home Health Care Services Referral ID:[id number] Provider Name:Dashawn Perdomo Address 1:[address] [place] Phone Number: Address 2: Fax Number: [facility]:[place] Selection Factors: State:[place] Patient Contact Information Contact Name:RANDEE Relationship:Daughter Address: Work Phone: [facility] Phone: [facility]/Zip Code: Email: Financial Information Financial Class: Primary Plan Desc:MEDICARE INPATIENT Primary Plan Number:[id number] Secondary Plan Desc:[place] Secondary Plan Number:[id number] Assessment Information [facility] Initial CM Assessment Living Arrangements What is your living Answers: Alone arrangement? Who do you live with? Type Of Residence What kind of residence do Answers: House you live in? Discharge Plan Comments Coordination Status Comments Notes: Patient is a 66yo man, , who was admitted for fusion of spine of thoracic region. He needs to remain flat until 08-01-17. OT/PT have been ordered. Patient has a daughter Cornelia. CM will follow. Date Signed: 07/30/2017 09:53 AM Electronically Signed By:Genia Hamilton LCSW [facility] CM Progress Note CM Note CM Note Notes: PT rec home, OT rec home vs HH. S/w pt & dghtr Cornelia who are interested in [facility], [place]. [place]elia is in town from [place] for two weeks and pts other dghtr is due to give shortly so Cornelia does not want pt returning home. Pt expresses interest in [facility] and [facility] referral sent. CM to follow. Date Signed: 08/02/2017 04:46 PM Electronically Signed By:NANDA Nieves [facility] CM Progress Note CM Note CM Note Notes: Zara Sahu assessed pt for [facility], pt does not qualify. Although pt accepted at both [facility] and [facility], today pt and dghtr decide to go home w [facility]. [facility] accepts pt for service. Date Signed: 08/04/2017 04:40 PM Electronically Signed By:NANDA Nieves [facility] CM Progress Note CM Note CM Note Notes: Pt medically stable for d/c w [facility] and dghtr support. Date Signed: 08/05/2017 03:47 PM Electronically Signed By:NANDA Nieves Intervention Information Intervention Type:*IM-Signed Date of Service:08/05/2017 09:24 AM Patient Type:Inpatient Staff Member:Pita Dillon Hours: Discipline: Severity: Comment:
== END 2017-08-05 12:07 | disposition home health service (06) | DRG 457 ==
LOC: F3N 05:44 → F2N 20:28 → F3N 07-30 17:29
PROVIDERS: ADMIT Neurological Surgery; ATTEND Neurological Surgery
DX: M48.07 Spinal stenosis, lumbosacral region (principal); G97.0 Cerebrospinal fluid leak from spinal puncture; M48.06 Spinal stenosis, lumbar region; M51.16 Intervertebral disc disorders with radiculopathy, lumbar region; M50.30 Other cervical disc degeneration, unspecified cervical region
CPT/HCPCS: 97116-GP; 97161-GP; 97166-GO; 97530-GP; 97535-GO; C1713; G8978-GP-CJ; G8979-GP-CI; G8980-GP-CI; G8987-GO-CK; G8988-GO-CI; G8989-GO-CJ; J0171; J0690; J1650; J2250; J2274; J2370; J2405; J2704; J3010; J7060

== ENCOUNTER 2017-08-13 13:24 | Observation (INO) | payer OTHER ==
[~2017-08-13 13:24] MED LIST: IOPAMIDOL (ISOVUE 370) 100 ML BTL IV ONE
[2017-08-13 14:48] LABS: % IMMATURE GRANULYOCYTES 0.4 % (0.0-1.1); ABSOLUTE IMMATURE GRANULOCYTES 0.02 10^3/uL (0.00-0.10); ADD DIFF? NO; ADD MORPH? NO; ADD SCAN? NO; ATYPICAL LYMPHOCYTE FLAG 10 (0-99); FRAGMENT RBC FLAG 0 (0-99); HEMATOCRIT 38.7 % (40.0-51.0); HEMOGLOBIN 13.4 g/dL (13.7-17.5); LEFT SHIFT FLG 0 (0-99); LIPEMIA HEMOLYSIS FLAG 90 (0-99); MEAN CELL HEMOGLOBIN 32.1 pg (27.9-34.1); MEAN CELL HEMOGLOBIN CONCENTR. 34.6 g/dL (32.4-36.7); MEAN CELL VOLUME 92.8 fL (81.5-99.8); MEAN PLATELET VOLUME 9.9 fL (8.7-11.7); PLATELET CLUMPS FLAG 0 (0-99); PLATELET COUNT 270 10^3/uL (150-400); RED BLOOD CELL COUNT 4.17 10^6/uL (4.40-6.38); RED CELL DISTRIBUTION WIDTH 12.5 % (11.5-15.2)
[2017-08-13 14:54] LABS: INR 1.09 (0.83-1.16)
[2017-08-13 14:57] LABS: ANION GAP 7 mEq/L (8-16); CALCIUM 8.6 mg/dL (8.5-10.4); CARBON DIOXIDE 27 mEq/l (22-31); CHLORIDE 97 mEq/L (97-110); CREATININE 1.1 mg/dL (0.7-1.3); GLOMERULAR FILTRATION RATE > 60; GLUCOSE 85 mg/dL (70-100); POTASSIUM 4.6 mEq/L (3.5-5.2); SODIUM 131 mEq/L (134-144)
[2017-08-13 15:08] LABS: TROPONIN I < 0.012 ng/mL (0.000-0.034)
--- NOTE | 2017-08-13 15:22 | CPEKG ---
Heart Rate: 80 RR Interval: 750 P-R Interval: 219 QRSD Interval: 80 QT Interval: 380 QTC Interval: 439 QRS Sawyer: 21 T Wave Sawyer: 5 EKG Severity - ABNORMAL ECG - EKG Impression: ATRIAL-VENTRICULAR DUAL-PACED COMPLEXES EKG Impression: LOW VOLTAGE IN FRONTAL LEADS Electronically Signed By: Steffany Cifuentes 13-Aug-2017 22:58:32
[2017-08-13] MEDS ORDERED: HYDROCODONE/APAP 5/325 TAB PO PRN (15:46)
[2017-08-13] MEDS ORDERED: traZODone 50 MG TAB PO PRN (15:46)
[2017-08-13] MEDS ORDERED: METHOCARBAMOL 750 MG TAB PO PRN (15:46)
[2017-08-13] MEDS ORDERED: ONDANSETRON 4 MG/2 ML VIAL IVP PRN (15:50)
[2017-08-13] MEDS ORDERED: ACETAMINOPHEN 325 MG TAB PO PRN (15:50)
[2017-08-13] MEDS ORDERED: WARFARIN SODIUM 5 MG TAB PO ONE (16:15)
[2017-08-13] MEDS: GABAPENTIN 400 MG CAP PO SCH ×2 (16:18→21:03)
[2017-08-13] MEDS: PREGABALIN 75 MG CAP PO SCH ×2 (16:18→21:04)
--- NOTE | 2017-08-13 16:31 | GHP ---
[f rep st] HISTORY AND PHYSICAL DATE OF ADMISSION: 08/13/2017 CHIEF COMPLAINT: Pleuritic chest pain. HISTORY: The patient is a 66-year-old male, who had lumbar spinal surgery with Dr. Fernando on July 29. He was in the neurosurgery office this morning for followup, and he reported to the neurosurgery PA that he had recently had some right-sided pleuritic chest pain. This pleuritic chest pain was right lower chest and lasted for a few hours and occurred transiently a couple days ago. Jose Enrique barcenas has not had any pain now for a couple of days. There has been no shortness of breath. He has neve r had any lower extremity edema. He was sent for CTA, which confirmed pulmonary embolus, and he was sent to the emergency room. He otherwise feels quite well that he is recovering nicely from his spin e surgery. PAST MEDICAL HISTORY: Negative. PAST SURGICAL HISTORY: Ankle surgery, multiple spine surgeries. MEDICATIONS: Please see computer record for full detailed list. ALLERGIES: Peanuts. SOCIAL HISTORY: No smoking. No alcohol. Lives alone. REVIEW OF SYSTEMS: Complete review of systems obtained. Review of systems is negative regarding con stitutional, HEENT, GI, pulmonary, vascular, neuro, , hematology, skin, musculoskeletal, endocrine and psych; except for positives and negatives as in HPI. FAMILY HISTORY: Reviewed and noncontributory to presenting complaint. PHYSICAL EXAMINATION: GENERAL: Well-developed, well-nourished male, in no distress. VITAL SIGNS: Temperature 36.7, pulse 84, blood pressure 116/57, saturating 95% on room air. EYES: Normal conjunc tivae. Pupils equal, round, react to light. ENT: Normal ears and nose. Hearing intact. Normal te eth. Oropharynx moist. NECK: Trachea midline. No thyromegaly. CHEST: Normal respiratory effort. Lungs clear to auscultation bilaterally. CARDIOVASCULAR: Regular rhythm. No murmur. No extremit y edema. ABDOMEN: Soft, nontender. No hepatosplenomegaly. SKIN: Warm, dry, intact. No rash. MU SCULOSKELETAL: No cyanosis or clubbing. Strength 5/5 upper and lower extremities. NEUROLOGIC: Box Toe Cementer nial nerves intact. Normal sensation to light touch. PSYCHIATRIC: Alert and oriented x3. Normal a ffect. Normal judgment. Normal memory. LABORATORY DATA: White count 5.34, hematocrit 38.7, platelets 270. Sodium 131, potassium 4.6, chlor andrew 97, bicarb 27, BUN 19, creatinine 1.1, glucose 85. Troponins negative. INR is 1.09. EKG viewed by me. My personal interpretation is paced rhythm. CT of the chest shows a right lower lobe PE. There is also consolidation in the left lower lobe with a small pleural effusion. This case was discussed with Dr. Monalisa Cooney. She did not prescribe any anticoagulation in the [facility] room and recommended I speak to Neurosurgery to discuss further options. ASSESSMENT AND PLAN: 1. Acute pulmonary embolus. Neurosurgery has cleared him to initiate Lovenox. We will start Loveno x at 1 mcg/kg b.i.d. dosing and have Pharmacy assist with this. We will also have Pharmacy assist wi th transition to warfarin. I anticipate anticoagulation for 3 months should be sufficient. 2. Recent lumbar spine surgery. We will order neuro checks, and he should be monitored closely for neuro changes as we initiate blood thinners. Again, Neurosurgery has cleared him to use full-dose Lo venox. 3. We will continue his pain medication regimen including OxyContin and Lyrica. CODE STATUS: Full. ADMISSION STATUS: 1. Will admit to observation. If he is stable, may be able go home tomorrow. 2. DVT prophylaxis. Anticoagulation for acute PE as discussed above. /[id number]/MODL
[2017-08-13] MEDS: ENOXAPARIN 80 MG/0.8 ML SYR SC SCH ×2 (16:32→21:06)
[2017-08-13] MEDS ORDERED: FAMOTIDINE 20 MG TAB PO SCH (18:45)
[2017-08-13] MEDS: SENNOSIDES/DOCUSATE SODIUM TAB PO SCH (21:04)
[2017-08-13] MEDS: FAMOTIDINE 20 MG TAB PO SCH (21:04)
--- NOTE | 2017-08-13 21:45 | EDPHY ---
H & P Stated Complaint: sent from imaging, "lung spot on CTA" Time Seen by Provider: 08/13/17 13:42 HPI/ROS: CHIEF COMPLAINT: Pulmonary embolism, recent surgery HISTORY OF PRESENT ILLNESS: This is a 66-year-old male who had a T6-S1 fusion performed approximately week and half ago. Patient was doing well and was seen in his postop visit today at the neurosurgeon's office. At that time he reported that 4 days ago he had an episode of pleuritic chest discomfort on the right associated with shortness of breath. This lasted for several hours and then resolved on its own. Since that time he has had no on further shortness of breath or chest discomfort. CT angiogram of the chest for pulmonary embolism was ordered. CT report was called to me as demonstrating a small right subsegmental pulmonary embolism as well as a pleural effusion on the left. Patient was referred to the emergency department for further evaluation and potential admission to the hospital. Patient has no prior history of thromboembolic disease. He denies any history of coronary artery disease. He denies any fevers or chills, any cough, shortness of breath, nausea, or vomiting. He has been wearing Andreas hose is since his surgery. REVIEW OF SYSTEMS: Aside from elements discussed in the HPI, a comprehensive 10-point review of systems was reviewed and is negative. PAST MEDICAL HISTORY: Denies past medical history. Multiple prior spinal surgeries. SOCIAL HISTORY: Nonsmoker. Lives alone. VITAL SIGNS Reviewed by me. GENERAL: Well-developed, well-nourished, no complaints of chest pain or shortness of breath at the current time. HEENT: Atraumatic. Eyes: No icterus, no injection. Mouth: moist mucous membranes. No erythema or lesions. Neck: supple with no adenopathy. LUNGS: Clear to auscultation bilaterally, no wheezes, rhonchi or rales. CARDIAC: Regular rate and rhythm, no rubs, murmurs or gallops. ABDOMEN: Soft, nontender, nondistended, bowel sounds normal. BACK: No CVA tenderness. EXTREMITIES: No trauma. No edema. Range of motion is normal throughout. NEURO: Alert and oriented, grossly nonfocal. SKIN: Warm and dry, no rash. PSYCHIATRIC: Normal mentation, no agitation. - Medical/Surgical History Hx Asthma: No Hx Chronic Respiratory Disease: No Hx Diabetes: No Hx Cardiac Disease: No Hx Renal Disease: No Hx Cirrhosis: No Hx Alcoholism: No Hx HIV/AIDS: No Hx Splenectomy or Spleen Trauma: No Other PMH: back surgeriesx4 (fusions), 3 other back surgeries, resolved stomach ulcers - Social History Smoking Status: Never smoked Constitutional: Initial Vital Signs Temperature (C) 36.7 C 08/13/17 13:32 Heart Rate 84 08/13/17 13:32 Respiratory Rate 18 08/13/17 13:32 Blood Pressure 116/67 08/13/17 13:32 O2 Sat (%) 95 08/13/17 13:32 O2 Delivery Mode Room Air Allergies/Adverse Reactions: peanut Allergy (Severe, Verified 08/13/17 15:11) Anaphylaxis tree nut [Nuts] Allergy (Severe, Verified 08/13/17 15:11) Anaphylaxis No Allergies [NKDA] Allergy (Verified 08/13/17 15:11) Home Medications: Medication Instructions Recorded Pregabalin [Lyrica 75mg (*)] 75 mg PO TID 11/05/15 Gabapentin [Neurontin 400 MG (*)] 800 mg PO TID 07/13/17 traZODone [traZODONE 50MG (*)] 50 mg PO HS PRN 07/13/17 Hydrocodone/APAP 5/325 [Singer 1 - 2 tab PO Q4HRS PRN tab 08/05/17 5/325 (*)] oxyCODONE CR [Oxycontin] 20 mg PO BID tab 08/05/17 Methocarbamol [Robaxin 750 mg (*)] 750 mg PO Q8H PRN 08/13/17 Sennosides/Docusate Sodium 2 tab PO BID 08/13/17 [Senokot-S] Medical Decision Making - Diagnostics EKG Interpretation: 12-LEAD EKG: Please see the full report in [facility]. My interpretation: Sinus rhythm, spinal stimulator providing underlying artifact. Imaging Results: CT Pulmonary angiogram Impression: 1. Definitive subsegmental pulmonary embolism in the right lower lobe, possibly in the right midlung as well. 2. Moderate left-sided lower lobe consolidation with a small pleural effusion. 3. Small right pleural effusion. ED Course/Re-evaluation: 66-year-old male status post T6-S1 spinal fusion presents now with an episode of chest pain or shortness of breath several days ago. Evaluation has demonstrated a pulmonary embolism on the right and a small pleural effusion on the left. Patient's course was discussed with Dr. Martita Toure. Patient will be admitted to the hospital for further treatment of his thromboembolic disease. At the current time he is hemodynamically stable and has no hypoxemia. Decisions regarding anticoagulation will be made by a Hospital Medicine service in conjunction with Neurosurgery. Differential Diagnosis: Differential diagnosis for the patient's shortness of breath was considered including but not limited to pulmonary infectious processes, pulmonary emboli, pulmonary edema, atelectasis, pneumonia, congestive heart failure, and cardiac causes. Consult/Admit Bed Type: Dr. Martita Toure, [facility] surg - Data Points Laboratory Results: Laboratory Results 08/13/17 14:05 08/13/17 14:05 08/13/17 08/13/17 08/13/17 14:05 14:05 14:05 WBC 5.34 10^3/uL 10^3/uL (3.80-9.50) RBC 4.17 10^6/uL L 10^6/uL (4.40-6.38) Hgb 13.4 g/dL L g/dL (13.7-17.5) Hct 38.7 % L % (40.0-51.0) MCV 92.8 fL fL (81.5-99.8) MCH 32.1 pg pg (27.9-34.1) MCHC 34.6 g/dL g/dL (32.4-36.7) RDW 12.5 % % (11.5-15.2) Plt Count 270 10^3/uL 10^3/uL (150-400) MPV 9.9 fL fL (8.7-11.7) Neut % (Auto) 67.8 % % (39.3-74.2) Lymph % (Auto) 19.7 % % (15.0-45.0) Teller % (Auto) 9.2 % % (4.5-13.0) Eos % (Auto) 2.2 % % (0.6-7.6) Baso % (Auto) 0.7 % % (0.3-1.7) Nucleat RBC Rel Count 0.0 % % (0.0-0.2) Absolute Neuts (auto) 3.62 10^3/uL 10^3/uL (1.70-6.50) Absolute Lymphs (auto) 1.05 10^3/uL 10^3/uL (1.00-3.00) Absolute Monos (auto) 0.49 10^3/uL 10^3/uL (0.30-0.80) Absolute Eos (auto) 0.12 10^3/uL 10^3/uL (0.03-0.40) Absolute Basos (auto) 0.04 10^3/uL 10^3/uL (0.02-0.10) Absolute Nucleated RBC 0.00 10^3/uL 10^3/uL (0-0.01) Immature Gran % 0.4 % % (0.0-1.1) Immature Gran # 0.02 10^3/uL 10^3/uL (0.00-0.10) PT 14.0 SEC SEC (12.0-15.0) INR 1.09 (0.83-1.16) Sodium 131 mEq/L L mEq/L (134-144) Potassium 4.6 mEq/L mEq/L (3.5-5.2) Chloride 97 mEq/L mEq/L (97-110) Carbon Dioxide 27 mEq/l mEq/l (22-31) Anion Gap 7 mEq/L L mEq/L (8-16) BUN 19 mg/dL mg/dL (7-23) Creatinine 1.1 mg/dL mg/dL (0.7-1.3) Estimated GFR > 60 Glucose 85 mg/dL mg/dL (70-100) Calcium 8.6 mg/dL mg/dL (8.5-10.4) Troponin I < 0.012 ng/mL ng/mL (0.000-0.034) Medications Given: Enoxaparin Sodium (Lovenox) 80 mg SC BID [facility] Stop: 02/09/18 16:14 Last Admin: 08/13/17 21:06 Dose: 80 mg Famotidine (Pepcid) 20 mg PO BID MIKHAIL Stop: 02/09/18 20:59 Last Admin: 08/13/17 21:04 Dose: 20 mg Gabapentin (Neurontin) 800 mg PO TID MIKHAIL Stop: 02/09/18 15:59 Last Admin: 08/13/17 21:03 Dose: 800 mg Oxycodone HCl (Oxycontin) 20 mg PO BID [facility] Stop: 08/23/17 20:59 Last Admin: 08/13/17 21:04 Dose: 20 mg Pregabalin (Lyrica) 75 mg PO TID [facility] Stop: 02/09/18 15:59 Last Admin: 08/13/17 21:04 Dose: 75 mg Senna/Docusate Sodium (Senokot-S) 2 tab PO BID [facility] Stop: 02/09/18 20:59 Last Admin: 08/13/17 21:04 Dose: 2 tab Trazodone HCl (Trazodone) 50 mg PO HS PRN PRN Reason: Sleep/Insomnia Stop: 02/09/18 15:45 Last Admin: 08/13/17 21:12 Dose: 50 mg Discontinued Medications Famotidine (Pepcid) 20 mg PO BID [facility] Stop: 02/09/18 18:44 Last Admin: 08/13/17 18:40 Dose: Not Given Warfarin Sodium (Coumadin) 5 mg PO ONCE ONE Stop: 08/13/17 16:16 Last Admin: 08/13/17 16:32 Dose: 5 mg Warfarin Sodium (Message-Coumadin Daily Order) 1 ea [facility] ONCE ONE Stop: 08/13/17 16:16 Last Admin: 08/13/17 16:36 Dose: Not Given Departure - Departure Disposition: [facility] Acute Clinical Impression: Fusion of spine of thoracic region, Pleural effusion Pulmonary embolism Qualifiers: Pulmonary embolism type: other Chronicity: acute Acute cor pulmonale presence: without acute cor pulmonale Qualified Code(s): I26.99 - Other pulmonary embolism without acute cor pulmonale Condition: Fair
[2017-08-14 04:24] VITALS: TEMP 98.1
[2017-08-14 05:27] LABS: INR 1.16 (0.83-1.16); PROTIME(PATIENT) 14.8 SEC (12.0-15.0)
[2017-08-14 07:38] VITALS: BP 99/62; PULSE 80; RESP 16; O2SAT 93
[2017-08-14] MEDS: ENOXAPARIN 80 MG/0.8 ML SYR SC SCH (08:40)
[2017-08-14] MEDS: GABAPENTIN 400 MG CAP PO SCH (08:40)
[2017-08-14] MEDS: PREGABALIN 75 MG CAP PO SCH (08:41)
[2017-08-14] MEDS: SENNOSIDES/DOCUSATE SODIUM TAB PO SCH (08:41)
[2017-08-14] MEDS: FAMOTIDINE 20 MG TAB PO SCH (08:43)
--- NOTE | 2017-08-14 13:56 | PDIAF ---
- Diagnosis Code Status: Full Code - Medication Management Discharge Medications: Medications to Continue on Transfer Pregabalin [Lyrica 75mg (*)] 75 mg PO TID 11/05/15 [Last Taken 08/13/17 2 DOSES] Gabapentin [Neurontin 400 MG (*)] 800 mg PO TID 07/13/17 [Last Taken 08/13/17 2 DOSES] traZODone [traZODONE 50MG (*)] 50 mg PO HS PRN 07/13/17 [Last Taken 08/12/17] Hydrocodone/APAP 5/325 [[place] 5/325 (*)] 1 - 2 tab PO Q4HRS PRN tab 08/05/17 [ Last Taken 08/13/17] oxyCODONE CR [Oxycontin] 20 mg PO BID tab 08/05/17 [Last Taken 08/13/17] Methocarbamol [Robaxin 750 mg (*)] 750 mg PO Q8H PRN 08/13/17 [Last Taken 2 DOSES] Sennosides/Docusate Sodium [Senokot-S] 2 tab PO BID 08/13/17 [Last Taken ] Apixaban [Eliquis] 2 tab PO BID #42 tablet 08/14/17 [Last Taken Unknown] Discharge Medications: Refer to the Discharge Home Medication list for PRN reason. - Orders Services needed: Home Care, Physical Therapy, Occupational Therapy Home Care Face to Face: I certify that this patient was under my care and that I had the required [id number] encounter meeting the encounter requirements on the discharge day. My findings support the fact that the patient is homebound as defined in Home Care Face to Face Continued: CMS Chapter 7 Medicare Benefits Manual 30.1.1 , The condition of the patient is such that there exists a normal inability to leave home and consequently, leaving home would require a considerable and taxing effort. Diet Recommendation: no restrictions on diet Diet Texture: Regular Texture Diet - Follow Up Care Current Providers and Referrals: Edith Spears MD [Primary Care Provider] -
--- NOTE | 2017-08-14 15:01 | ASMTCMCOM ---
CM Note CM Note Notes: Pt. d/c'ed and left the floor before SWer could determine from looking in previous admission that Pt. had, had homecare after recent back surgery through [facility] . SWer called [facility] and went through answering service. Able to speak w/ Rhonda [phone]. Rhonda would like new orders for RN and PT. Hospitalist able to put in orders. Hard faxed orders and meds to Rhonda. Receipt shows fax went through. Unable to reach [place] when tried to confirm receipt of fax. Date Signed: 08/14/2017 03:01 PM Electronically Signed By:Jennie Breaux LCSW
--- NOTE | 2017-08-14 15:02 | ASDISCHSUM ---
Discharge Information Plan Status:Home with Home Health Medically Cleared to Leave: Discharge Date:08/14/2017 09:59 AM CM D/C Disposition:Home Health Service ADT D/C Disposition:Home, Routine, Self-Care Projected Discharge Date:08/14/2017 09:59 AM Transportation at D/C: Discharge Delay Reason: Follow-Up Date:08/14/2017 09:59 AM Discharge Slot: Final Diagnosis: Placement Information Patient Contact Information Contact Name:RANDEE Relationship:Daughter Address: Work Phone: City: [facility] Phone: State/Zip Code: Email: Financial Information Financial Class: Primary Plan Desc:MEDICARE OUTPATIENT Primary Plan Number:[id number] Secondary Plan Desc:[facility] Secondary Plan Number:[id number] Assessment Information [facility] CM Progress Note CM Note CM Note Notes: Pt. d/c'ed and left the floor before SWer could determine from looking in previous admission that Pt. had, had homecare after recent back surgery through [facility] . SWer called [facility] and went through answering service. Able to speak w/ Rhonda [phone]. Rhonda would like new orders for RN and PT. Hospitalist able to put in orders. Hard faxed orders and meds to Rhonda. Receipt shows fax went through. Unable to reach [place] when tried to confirm receipt of fax. Date Signed: 08/14/2017 03:01 PM Electronically Signed By:Jennie Breaux LCSW Intervention Information
--- NOTE | 2017-08-14 18:11 | GDS ---
[f rep st] DISCHARGE SUMMARY DISCHARGE DIAGNOSES: 1. Acute right lower lobe pulmonary embolism. 2. Recent lumbar surgery. 3. Pain due to lumbar surgery. PROCEDURES: 08/13/2017: Chest CTA which shows definitive subsegmental pulmonary embolism in the rig ht lower lobe, possibly in the right mid lobe lung as well. There is also consolidation left lower l obe with a small pleural effusion. BRIEF HISTORY: Please see dictated H and P by Dr. Toure for complete details. In brief, the patient is a 66-year-old male with a recent lumbar spinal surgery with Dr. Fernando on 07/29. He was s een in the neurosurgery office on 08/13/2017, and had reported some recent right-sided pleuritic ches t pains. He was sent for CTA, which confirmed presence of pulmonary embolism. He was admitted to ou r service for further treatment of this. Neurosurgery was contacted, and they agreed to full anticoa gulation, which was started with Lovenox last night. We reviewed options, and the patient would pref er one of the direct anticoagulants. He is, therefore, being switched to Eliquis 10 mg p.o. b.i.d. f or 7 days. After that, he will be transitioned to 5 mg p.o. b.i.d. PHYSICAL EXAM: VITAL SIGNS: On day of discharge, blood pressure 99/62, heart rate 80, respirations 16, O2 saturation 93% on room air. GENERAL: Pleasant male, in no apparent distress. EYES: PERRL. HEART: Regular rate and rhythm. LUNGS: Clear to auscultation bilaterally. EXTREMITIES: Without clubbing, cyanosis, or edema. No joint deformities detected. RESULTS PENDING: None. DIET: Per previous. ACTIVITY: As tolerated. DISCHARGE MEDICATIONS: Please see med reconciliation. DISCHARGE INSTRUCTIONS: He is being started on Eliquis 10 mg p.o. twice daily x1 week, followed by 5 mg p.o. b.i.d. He is to follow up with Dr. Spears for refills of this within 1-2 weeks. /[id number]/MODL
[2017-08-14] MEDS ORDERED: APIXABAN 5 MG TAB PO SCH ×2 (21:00)
== END 2017-08-14 09:59 | disposition home or self-care (01) ==
LOC: F3E 15:57 → EDSTATUS 18:00
PROVIDERS: ADMIT Internal Medicine; ATTEND Internal Medicine
DX: I26.99 Other pulmonary embolism without acute cor pulmonale (principal); J90 Pleural effusion, not elsewhere classified; M54.5 Low back pain; Z98.1 Arthrodesis status; Z87.11 Personal history of peptic ulcer disease
CPT/HCPCS: 71275; 93005; 99285; G0378; J1650; Q9967